=== PATIENT | female | born 1965 | race Caucasian/White ===

== ENCOUNTER 2018-03-07 14:29 | Day surgery (SDC) | payer OTHER ==
[~2018-03-07] VITALS: Ht 160 cm; Wt 64.1 kg
[2018-03-07] MEDS ORDERED: SYNTHROID0.075 MG/T PO (14:45)
[2018-03-07] MEDS ORDERED: DAZIDOX10 MG PO (14:45)
[2018-03-07] MEDS ORDERED: MIRAPEX 0.0.125 MG/T PO (14:46)
[2018-03-07] MEDS ORDERED: DESYREL DIVIDO150 M1 PO (14:46)
[2018-03-07] MEDS ORDERED: ZYRTEC-D 5 MG-11 TER PO (14:47)
[2018-03-07] MEDS ORDERED: NEXIUM 40MG40 MG PO (14:48)
[2018-03-07 15:05] VITALS: BP 102/75; PULSE 120; TEMP 98.3
[2018-03-07 15:50] VITALS: BP 103/68; PULSE 107; TEMP 98.4
[2018-03-07 16:05] VITALS: BP 116/45; PULSE 112
[2018-03-07 16:20] VITALS: BP 94/52
== END 2018-03-07 16:28 | disposition home or self-care (01) ==
LOC: SDCO 14:29
DX: Z12.11 Encounter for screening for malignant neoplasm of colon (principal); F41.9 Anxiety disorder, unspecified; Z88.8 Allergy status to other drugs, medicaments and biological substances
CPT/HCPCS: J2250; J2405; J3010; J7030